=== PATIENT | female | born 1990 | race Caucasian/White ===

== ENCOUNTER 2019-10-04 12:34 | Emergency (ER) | payer BC, OTHER ==
[~2019-10-04] VITALS: Ht 170.2 cm; Wt 68.0 kg
--- NOTE | 2019-10-04 12:46 | Emergency Department Note ---
History of Present Illnes History of Present Illness Chief Complaint: Genitourinary History of Present Illness This is a 29 year old female here for R labia cyst, pain over the last 2-3 days. No drainage. Pt currently on her menses. Arrival Mode: Car Onset (how long ago): day(s) (2) Location: R labia Quality: ache Radiation: Reports non-radiation Severity: moderate Duration (how long): day(s) (3) Timing of current episode: constant Progression: worsening Chronicity: new Relieving factors: none Exacerbating factors: movement Associated symptoms: Denies denies other symptoms, Denies confusion, Denies cough Treatments prior to arrival: none Past Medical/Family History Physician Review I have reviewed the patient's past medical and family history. Any updates have been documented here. Past Medical History Other Surgery: TONSILECTOMY Other Last Tetanus: UNKNOWN Review of Systems Review of Systems Constitutional: Reports no symptoms EENTM: Reports no symptoms Cardiovascular: Reports no symptoms Respiratory: Reports no symptoms Gastrointestinal: Reports no symptoms Genitourinary: Reports no symptoms Musculoskeletal: Reports no symptoms Integumentary: Reports no symptoms Neurological: Reports no symptoms Psychological: Reports no symptoms Endocrine: Reports no symptoms Hematological/Lymphatic: Reports no symptoms Physical Exam Related Data Allergies: Coded Allergies: No Known Allergies (Unverified , 10/04/19) Physical Exam CONSTITUTIONAL Constitutional: Present well-developed, Present well-nourished HENT HENT: Present normocephalic, Present atraumatic, Present oropharynx clear/moist, Present nose normal HENT L/R: Present left ext ear normal, Present right ext ear normal EYES Eyes: Reports PERRL, Reports conjunctivae normal NECK Neck: Present ROM normal PULMONARY Pulmonary: Present effort normal, Present breath sounds normal CARDIOVASCULAR Cardiovascular: Present regular rhythm, Present heart sounds normal, Present capillary refill normal, Present normal rate GASTROINTESTINAL Abdominal: Present soft, Present nontender, Present bowel sounds normal GENITOURINARY Genitourinary: Present vagina normal, Present other (2cm right Bartholin cyst, tender to palpation, no drainage.) SKIN Skin: Present warm, Present dry MUSCULOSKELETAL Musculoskeletal: Present ROM normal NEUROLOGICAL Neurological: Present alert, Present oriented x 3, Present no gross motor or sensory deficits PSYCHOLOGICAL Psychological: Present mood/affect normal, Present judgement normal Procedures Incision and Drain Emergent situation: No Type of anesthesia: local Risks and benefits discussed: Yes Verbal consent obtained: Yes Consent given by: patient Prepped and draped in sterile: Yes Side verified: yes Site verified: yes Site marked: yes Type: Bartholin cyst Size: 2cm Site: other (R labia) Anesthesia method: local infiltration Incision type: stab incision Incision depth: submucosal Scalpel blade: 11 Wound management: probed and deloculated Drainage: purulent Drainage amount: moderate Wound treatment: wound left open Packing used: none Patient tolerance: tolerated well Procedure attestation: I performed the procedure Assessment & Plan Medical Decision Making MDM Pt with h/o abscess here with R bartholin abscess Assessment & Plan Final Impression: (1) Bartholin's cyst Depart Disposition: HOME, SELF-alf Meds Active Scripts Cephalexin (CEPHALEXIN) 500 Mg Capsule, 500 MG PO TID, #30 CAP Prov:ELISE ROJAS MD 10/04/19 ELISE ROJAS MD Oct 04, 2019 12:46
[2019-10-04] MEDS ORDERED: LIDOCAINE 1% W/EPINEPHRINE 20 ML VIAL INJ ONE (13:15)
--- OUTSIDE RECORDS SUMMARY | 2019-10-04 13:51 | XMS REPORT | Continuity of Care Document ---
Author Author Mary Carmen [employer] Charge Address Unknown Phone Unavailable Care Team Providers Care Gauge Checker Name Role Phone [employer] Information Exchange Unavailable Un available Problems Problem Status Onset Date Classification Date Reported Comments Source Marijuana use, continuous Acti ve Diagnosis 0 07/01/2014 [facility] Depression Active Problem 07/01/2014 [facility] Anxiety Active Problem 07/01/2014 [facility] Routine general medical examination at [facility] Active Diag nosis 07/01/2014 [facility] Amenorrhea Active Diagnosis 07/01/2014 [facility] Vaginal discharge Active Problem 07/01/2014 [facility] Vulvovaginal candidiasis Active Problem 07/01/2014 [facility] Medications Medication Details Route Status Patient Instructions Ordering Provider Order Date Source ZyrTEC 1 tablet as needed Orally Active 10 MG Orally Once a day [facility] Allergies, Adverse Reactions, Alerts Substance Category Reaction Severity Reaction type Status Date Reported Comments Source N.K.D.A. Adverse Reaction Info Not Available Adverse Reaction Active 06/30/2014 [facility] Immunizations No Data Provided for This Section Results No Data Provided for This Section Pathology Reports No Data Provided for This Section Diagnostic Reports No Data Provided for This Section Consultation Notes No Data Provided for This Section Discharge Summaries No Data Provided for This Section History and Physicals No Data Provided for This Section Vital Signs Vital Sign Value Date Comments Source Weight 154.5 06/30/2014 [facility] Height 67 0 06/30/2014 [facility] Temperature Oral (F) 98.0 F 06/30/2014 [facility] Heart Rate 66 06/30/2014 [facility] Diastolic (mm Hg) 58 06/30/2014 [facility] Systolic (mm Hg) 100 06/30/2014 [facility] Encounters Location Location Details Encounter Type Encounter Number Reason For Visit Attending Provider ADM Date DC Date Status Source [facility] New patient here with sore throat,cough, ear problems and states it may have to do with mold in her new apartment [id number] 05/25/2014 05/25/2014 [facility] Patient here for lab work done, pt states that she is very weak [id number] 06/30/2014 06/30/2014 [facility] Procedures No Data Provided for This Section Assessment and Plan No Data Provided for This Section Plan of Care No Data Provided for This Section Social History Social History Date Source Social History ElementQualifiersDate Rep orted Sexual History: . Are you currently sexually active? Ye s, Partner Preference: Heterosexual, Do you use a form of protection? No, Have you ever had an STD? No June 30, 2014 Tobacco Use: . Are you a: never smoker June 30, 2014 Use of recreational / street drugs? . Answer: Yes, What drugs do you use? M mkjuana, Frequency: Daily June 30, 2014 Do you have pets? . Status: No June 30, 2014 Marital Status: . Single June 30, 2014 Caffeine intake? . Status: Yes, What type: Coffee, Soft Drinks, How often? Daily June 30, 2014 New since last visit: none. June 30, 2014 Do you exercise? . Answer: Yes, Type: walking, running, How often? Weekly June 30, 2014 Do you drink alcohol? . Status: Yes, Type: Beer, How often? 2 -3 times per week June 30, 2014 06/30/2014 [facility] Family History No Data Provided for This Section Advance Directives No Data Provided for This Section Functional Status No Data Provided for This Section
--- OUTSIDE RECORDS SUMMARY | 2019-10-04 13:51 | XMS REPORT | Continuity of Care Document ---
Author Author [facility] Organization [facility] Address [address] [place] [address] Phone Unavailable Care Team Providers Care Neckties Painter Name Role Phone Rosalina Tate DO PCP Problems Condition Name Condition Details Condition Category Status Onset Date Resolution Date Last Treatment Date Treating Clinician Comments Source Marijuana use, continuous Precious elias use, continuous Active Diagnosis 07/01/2014 [facility] Diagnosis Active 2014-07-01 02:51:05 Mary Carmen Conroy Depression Depr ession Active Problem 07/01/2014 [facility] Primary Problem Active 2014-07-01 02:51:05 Mary Carmen Conroy Anxiety Anxi ety Active Problem 07/01/2014 [facility] Primary Problem Active 2014-07-01 02:51:05 Keegan Conroy Routine general medical examination at [facility] Routine general medical examination at health care [facility] Active Diagnosis 07/01/2014 [facility] Primary Diagnosis Active 2014-07-01 02:51:0 5 Mary Carmen Conroy Amenorrhea Amen orrhea Active Diagnosis 07/01/2014 [facility] Primary Diagnosis Active 2014-07-01 02:51:05 Mary Carmen Conroy Vaginal discharge Vagi nal discharge Active Problem 07/01/2014 [facility] Problem Active 2014-07-01 02:51:05 Mary Carmen Conroy Vulvovaginal candidiasis Vulv ovaginal candidiasis Active Problem 07/01/2014 [facility] Primary Problem Active 2 02:51:05 Mary Carmen Conroy Allergies, Adverse Reactions, Alerts Allergy Name Allergy Type Status Severity Reaction(s) Onset Date Inacti ve Date Treating Clinician Comments Source N.K.D.A. N.K.D.A. Active Info Not Available 2014-06-30 00:00:00 Mary Carmen Conroy Social History Social Habit Start Date Stop Date Quantity Comments Source Sex Assigned At [facility] Alcohol intake 2018-07-15 00:00:00 2018-07-15 00:00:00 Current non-drinker of alcohol (finding) [facility] History SDOH Food Worry 2017-09-11 00:00:00 2017-09-11 00:00:00 1 [facility] History SDOH Food Scarcity 2017-09-11 00:00:00 2017-09-11 00:00:00 1 [facility] SexualHistory: 2014-06-30 00:00:00 2014-06-30 00:00:00 [facility] Smoking Status Start Date Stop Date Source Never smoker [facility] Medications Ordered Medication Name Filled Medication Name Start Date Stop Da te Current Medication? Ordering Clinician Indication Dosage Frequency Signature (SIG) Comments Components Source ZyrTEC 2014-07-01 02:51:05 Yes Penny York 1 tab let as needed [facility] Vital Signs Vital Name Observation Time Observation Value Comments Source Weight 2014-06-30 16:00:00 [facility] 2014[facility]30 [facility] Oral (F) 2014-06-30 16:00:00 98.0 F [facility] Heart Rate 2014-06-30 16:00:00 [facility] Diastolic (mm Hg) 2014-06-30 16:00:00 [facility] Systolic (mm Hg) 2014-06-30 16:00:00 [facility] Procedures This patient has no known procedures. Plan of Care Planned Activity Planned Date Details Comments Source Future Scheduled Test 2019-11-11 00:00:00 IMM Influenza Seas onal Nov to April (>/= 19 yrs) [code = IMM Influenza Seasonal Nov to April (>/= 19 yrs)] [facility] Future Scheduled Test 2018-03-29 00:00:00 Screening for sridhar gnant neoplasm of cervix (procedure) [code = [id number]] [facility] Encounters Start Date/Time End Date/Time Encounter Type Admission Type Attendi [facility] Facility Care Department Encounter ID Source 2018-08-24 00:00:00 2018-08-24 00:00:00 Outpatient [facility] [id number] [facility] 2018-08-21 00:00:00 2018-08-21 00:00:00 Outpatient [facility] [id number] [facility] 2017-11-11 00:00:00 2017-11-11 00:00:00 Outpatient [facility] [id number] [facility] 2017-11-05 00:00:00 2017-11-05 00:00:00 Outpatient [facility] [id number] [facility] 2017-10-14 00:00:00 2017-10-14 00:00:00 Outpatient [facility] [id number] [facility] 2017-10-07 00:00:00 2017-10-07 00:00:00 Outpatient [facility] [id number] [facility] 2017-09-26 00:00:00 2017-09-26 00:00:00 Outpatient [facility] [id number] [facility] 2017-09-11 11:18:10 2017-09-11 11:18:10 Outpatient [facility] [id number] [facility] 2017-09-11 10:30:10 2017-09-11 10:30:10 Outpatient [facility] [id number] [facility] 2014-06-30 11:00:00 2014-06-30 11:00:00 Outpatient [facility] Primary Care [facility] Primary [facility] [place] [id number] [employer] Results This patient has no known results.
--- OUTSIDE RECORDS SUMMARY | 2019-10-04 13:51 | XMS REPORT | Clinical Summary ---
Author Author [facility] ict Organization [facility] ict Address Unknown Phone Unavailable Care Team Providers Care Drafting Engineer Name Role Phone Rosalina Tate DO PCP Allergies No Known Allergies Medications No known medications Active Problems No known active problems Social History Date Tobacco Use Types Packs/Day Years Used Never Smoker Smokeless Tobacco: Never Used Drinks/Week oz/Week Comments Alcohol Use No Food Insecurity Answer Date Recorded Within the past 12 months, you worried that your Never jacqueline e 09/11/2017 food would run out before you got money to buy more. Within the past 12 months, the food you bought Never true 09/11/2017 just didn't last and you didn't have mo roxana to get more. Sex Assigned at Date Recorded Not on file Industry Job Start Date Occupation Not on file Not on file Not on file Travel End Travel History Travel Start No recent travel history available. Last Filed Vital Signs Not on file Plan of Treatment Health Maintenance Due Date Last Done Comments Cervical Cancer Scrn (3 03/29/2018 03/29/2015 Yrs) IMM Influenza Seasonal 11/11/2019 Oct to April (>/= 19 yrs) Results Not on fileafter 10/03/2018 Insurance Type Payer Benefit Subscriber ID Effective Phone Address Plan / Dates Group [place] [employer] [id number] xxxxxxxxx 2017-P [phone] [id number] [place], [place] [id number]
[2019-10-04] MEDS ORDERED: CEPHALEXIN500 MG PO (14:15)
[2019-10-04 14:55] VITALS: BP 132/64
== END 2019-10-04 14:58 | disposition home or self-care (01) ==
LOC: ER 12:36
DX: N75.0 Cyst of Bartholin's gland (principal)
CPT/HCPCS: 99283